=== PATIENT | male | born 1950 | race African-American/Black ===

== ENCOUNTER 2018-05-21 12:02 | Inpatient (IN) | payer MEDICAID ==
[~2018-05-21] VITALS: Ht 172.7 cm; Wt 88.5 kg
--- NOTE | 2018-05-21 12:17 | NUR ---
SHERON FRIAS 89 FROM [facility], "BEEN SICK LAST COUPLE OF DAYS, ALTERED, FEVER AND HYPOTENSIVE, WORSE TODAY" BS 198. TO ER BED 8, HOOKED TO MONITOR, CHANGED TO GOWN, AWAITING MD LBACK.
[2018-05-21] MEDS ORDERED: FURO-144 PO (12:32)
[2018-05-21] MEDS ORDERED: ACET-868 PO (12:32)
[2018-05-21] MEDS ORDERED: FAMO20TA8 PO (12:32)
[2018-05-21] MEDS ORDERED: PRED20TA PO (12:32)
[2018-05-21] MEDS ORDERED: INSU100I26 SQ (12:32)
[2018-05-21] MEDS ORDERED: ENOX40DI SQ (12:32)
[2018-05-21] MEDS ORDERED: GLUC1KIT IM (12:32)
[2018-05-21] MEDS ORDERED: HYDR-4384 PO (12:32)
[2018-05-21] MEDS ORDERED: LOSA50TA39 PO (12:32)
[2018-05-21] MEDS ORDERED: BENZ1TAB7 PO (12:32)
[2018-05-21] MEDS ORDERED: CARV12.52 PO (12:32)
[2018-05-21] MEDS ORDERED: BLOO-668 IN (12:32)
[2018-05-21] MEDS ORDERED: DIPH25CA6 PO (12:32)
[2018-05-21] MEDS ORDERED: HALO5TAB PO (12:32)
[2018-05-21] MEDS ORDERED: ONDA4TAB5 PO (12:32)
[2018-05-21] MEDS ORDERED: INSU100V27 SQ (12:32)
--- NOTE | 2018-05-21 12:35 | NUR ---
DR ROGERS AT BEDSIDE
[2018-05-21 12:48] LABS: BASOPHILS % (AUTO) 0.1 % (0.0-2.0); EOSINOPHILS % (AUTO) 0.3 % (0.0-6.0); HEMATOCRIT 42 % (39-51); HEMOGLOBIN 14.1 g/dL (13.5-17.5); LYMPHOCYTES # (AUTO) 0.7 /CMM (0.8-4.8); LYMPHOCYTES % (AUTO) 3.5 % (20.0-44.0); MEAN CORPUSCULAR HGB CONC 34 g/dl (31.0-36.0); MEAN CORPUSCULAR VOLUME 99 fL (80-96); MONOCYTES % (AUTO) 10.3 % (2.0-12.0); NEUTROPHILS # (AUTO) 16.5 /CMM (1.8-8.9); NEUTROPHILS % (AUTO) 85.8 % (43.0-81.0); PLATELET COUNT (AUTO) 86 /CMM (150-450); RED BLOOD CELL COUNT(AUTO) 4.23 MIL/uL (4.5-6.0); WHITE BLOOD COUNT (AUTO) 19.3 K/uL (4.3-11.0)
[2018-05-21 12:50] LABS: APPEARANCE,URINE Cloudy (CLEAR); BILIRUBIN,URINE Negative (NEGATIVE); BLOOD, URINE Moderate Ery/uL (NEGATIVE); COLOR,URINE Yellow (YELLOW); KETONES,URINE Negative (NEGATIVE); LEUKOCYTE ESTERASE ,URINE Moderate (NEGATIVE); NITRITE, URINE Negative (NEGATIVE); PH,URINE 5.5 (5.0-8.0); PROTEIN,URINE 30 mg/dl (NEGATIVE); UGLUCOSE Negative (NEGATIVE); UROBILINOGEN,URINE 0.2 EU/dL (0.2)
[2018-05-21 12:56] LABS: BACTERIA,URINE Rare /HPF (None Seen); SQUAMOUS EPITHELIAL CELL,UR Rare /HPF (None Seen)
[2018-05-21 12:58] LABS: CALCIUM, SERUM 8.4 mg/dL (8.5-10.1); CARBON DIOXIDE 24 mmol/L (21-32); CHLORIDE 94 mmol/L (98-107); GLUCOSE 220 mg/dL (74-106); POTASSIUM 4.6 mmol/L (3.5-5.1); SODIUM SERUM 127 mmol/L (136-145); UREA NITROGEN, BLOOD 56 mg/dL (7-18)
[2018-05-21 13:04] LABS: ALANINE AMINOTRANSFERASE 25 U/L (12-78); ALBUMIN 2.2 g/dL (3.4-5.0); ALKALINE PHOSPHATASE 107 U/L (46-116); ASPARTATE AMINOTRANSFERASE 45 U/L (15-37); BILIRUBIN,DIRECT 1.7 mg/dL (0.0-0.2); BILIRUBIN,TOTAL 2.2 mg/dL (0.2-1.0); TOTAL PROTEIN, SERUM 6.3 g/dL (6.4-8.2)
[2018-05-21 13:16] LABS: LYMPHOCYTES % (MANUAL) 3 % (16-48); MONOCYTES % (MANUAL) 11 % (0-11.0); NEUTROPHILS % (MANUAL) 86 (42-76)
[2018-05-21] MEDS ORDERED: PIPERACILLIN /TAZOBACTAM 3.375 G in IV D5W 50 ML IV ONE (13:30)
[2018-05-21] MEDS ORDERED: VANCOMYCIN 1 GM in IV D5W 250 ML IV ONE (13:30)
[2018-05-21] MEDS ORDERED: ASPIRIN 300 MG/SUPP.RECT RC ONE ×2 (13:49→14:00)
[2018-05-21] MEDS ORDERED: IV NS 0.9% 1,000 ML BAG IV ONE ×3 (14:00→18:30)
--- NOTE | 2018-05-21 14:30 | NUR ---
PT IN BED, HOOKED TO MONITOR, NAD. WILL CONTINUE TO MONITOR
--- NOTE | 2018-05-21 16:15 | NUR ---
CALLED KAZ LÓPEZ FOR BED; STATED THAT HE IS WAITING FOR DISCHARGES FROM UP STAIRS TO HAPPEN, THEN HE WILL GIVE BEDS.
[2018-05-21] MEDS ORDERED: IV NS 0.9% 500 ML IV PRN (16:30)
[2018-05-21] MEDS ORDERED: DEXTROSE 50%-WATER 50 ML DISP.SYRIN IV PRN (16:30)
--- NOTE | 2018-05-21 16:53 | NUR ---
INFORMED DR BROWN THAT PT IS TACHYCARDIC WITH DROPPING BLOOD PRESSURE. RECEIVED VERBAL ORDER OF 1L NS TO RUN FOR AN HOUR. CARRIED OUT ORDER.
--- NOTE | 2018-05-21 17:13 | NUR ---
BED 108
--- NOTE | 2018-05-21 17:25 | NUR ---
REPORT GIVEN TO YIN ABAD OF TELE UNIT
[2018-05-21] MEDS ORDERED: HEPARIN SODIUM, PORCINE 5000 UNITS/1 ML VIAL SQ ONE (17:49)
--- NOTE | 2018-05-21 17:55 | NUR ---
NS 1L IVPB LAC 20G, TOLERATED WELL
[2018-05-21] MEDS: FAMOTIDINE (20 MG) 20 MG TABLET PO SCH (19:42)
[2018-05-21] MEDS: BLOOD SUGAR DIAGNOSTIC 1 EACH STRIP IN SCH ×2 (19:43→23:54)
[2018-05-21 20:00] VITALS: BP 110/79
[2018-05-21] MEDS ORDERED: CEFTRIAXONE 1 G in IV D5W 50 ML IV SCH (20:00)
--- NOTE | 2018-05-21 20:00 | NUR ---
RN AGUILAR ADMITTING NOTE RECEIVED PT FROM YIN ABAD AM SHIFT, AOX2, CONFUSED, ON R/A, WELL TOLERATED SAT' 97 %, DENIES ANY PAIN, GENERALIZED OLD RASH TO LOW EXTREMITY, DUSKY COLOR, WITH LAC#20G AND RH#20G, WELL SECURED AND PATENT, KEPT CLEAN AND DRY, AMBULATORY WITH ASSIST, VS STABLE SINUS TACHY 112, SAFETY MEASURES IN PLACE, ADMITTING ORDERS ENTERED, ADMITTED FOR SEPSIS, PNA, WILL CONT' TO MONITOR.
--- NOTE | 2018-05-21 20:07 | NUR ---
EGG SMELLER NOTE RECEIVED PATIENT FROM ATTIC BLOWER. PATIENT SLEEPING. A/O X 2, NO SOB, AFEBRILE, NO S/S OF DISTRESS. 2L 02 VIA NC, BP 90/64, RR 18, TEMP 97.8. NPO EXCEPT MEDS. LAC #20 INTACT AND PATENT. RH #20 INTACT AND PATENT. CARE ENDORSED TO LIFE SKILLS SPECIALIST RN.
[2018-05-21] MEDS: INSULIN REGULAR, HUMAN 100 UNIT/ML 3 ML VIAL SQ PRN ×2 (20:27→23:55)
[2018-05-21] MEDS ORDERED: AZITHROMYCIN 500 MG in IV D5W 250 ML IV SCH (21:00)
--- NOTE | 2018-05-21 23:22 | NUR ---
Patient is alert, resides at [facility] [phone] at [address] [address]. He is ambulatory and semi-independent with adl's. He is a [employer] member. Will coordinate with insurance processor for any dc planning needs. Current dc plan is to return to the [facility]. Addendum: 05/21/18 at 2877 by CANDY BANUELOS RN Amended: Links added.
[2018-05-22] VITALS: BP 110/93
[2018-05-22] MEDS ORDERED: IV NS 0.9% 1,000 ML BAG IV PRN ×2 (04:30→05:00)
[2018-05-22 04:54] VITALS: BP 107/70
[2018-05-22] MEDS: BLOOD SUGAR DIAGNOSTIC 1 EACH STRIP IN SCH ×3 (05:25→18:22)
[2018-05-22] MEDS: INSULIN REGULAR, HUMAN 100 UNIT/ML 3 ML VIAL SQ PRN ×3 (05:32→18:23)
--- NOTE | 2018-05-22 06:46 | NUR ---
AGUILAR RN NOTE ENDORSED PATIENT TO AM RN. PATIENT SLEEPING. A/O X 2, NO SOB, AFEBRILE, NO S/S OF DISTRESS. 2L 02 VIA NC, PREFER R/A. NPO EXCEPT MEDS. LAC #20 INTACT AND PATENT. RH #20 INTACT AND PATENT. CARE ENDORSED TO CPR INSTRUCTOR RN.
--- NOTE | 2018-05-22 07:30 | NUR ---
RN NOTES RECEIVED PATIENT IN BED, ASLEEP BUT EASILY AWAKES ON VERBAL STIMULI, ABLE TO RESPOND APPROPRIATELY BUT IS WITHDRAWN, AOX2, NOT ON ANY FORM OF DISTRESS, NO SOB, ON R/A, SATING AT 98 %, COMPLAINS OF PAIN WITH A 6/10 SCALE BUT WONT RESPOND ON WHAT PART OF THE BODY IS HURTING AND SAID NOT AT THIS TIME WHEN OFFERED WITH PAIN MEDICINE, SINUS TACHY ON THE MONITOR WITH HR AT 101 AT THIS TIME. WITH LAC#20G AND RH#20G IV ACCESS IN PLACE AND INTACT, PATENT ON FLUSHING, IVF OF NS AT 100CC/HR. GENERALIZED OLD RASH TO SCAB ON THE LOWER EXTREMITIES. PATIENT KEPT COMFORTABLE IN BED. SAFETY MEASURES OBSERVED AND MAINTAINED IN PLACE, SRX2 RAISED, BED LOCKED AND LOW POSITION, BED ALARM ON, ENCOURAGE PATIENT TO CALL FOR HELP AND ASSISTANCE, GALILEA LIGHT PLACED WITHIN REACH. WILL CONTINUE TO MONITOR PATIENT CLOSELY.
[2018-05-22 08:00] VITALS: BP 112/65
[2018-05-22] MEDS: INSULIN GLARGINE, 100 UNIT/ML CARTRIDGE SQ SCH ×2 (09:00→22:28)
[2018-05-22] MEDS ORDERED: PIPERACILLIN /TAZOBACTAM 2.25 G in IV D5W 50 ML IV SCH (09:00)
[2018-05-22] MEDS: FAMOTIDINE (20 MG) 20 MG TABLET PO SCH ×2 (09:10→18:22)
[2018-05-22] MEDS: PIPERACILLIN /TAZOBACTAM 3.375 G in IV D5W 100 ML IV SCH (10:46)
[2018-05-22 12:50] LABS: CALCIUM, SERUM 8.6 mg/dL (8.5-10.1); CREATININE 1.3 mg/dL (0.6-1.3); POTASSIUM 3.8 mmol/L (3.5-5.1)
[2018-05-22 12:53] LABS: EOSINOPHILS % (AUTO) 0.6 % (0.0-6.0); HEMATOCRIT 45 % (39-51); HEMOGLOBIN 15.2 g/dL (13.5-17.5); LYMPHOCYTES # (AUTO) 0.8 /CMM (0.8-4.8); LYMPHOCYTES % (AUTO) 4.3 % (20.0-44.0); MEAN CORPUSCULAR HGB CONC 34 g/dl (31.0-36.0); MEAN CORPUSCULAR VOLUME 98 fL (80-96); MONOCYTES % (AUTO) 11.2 % (2.0-12.0); NEUTROPHILS # (AUTO) 15.1 /CMM (1.8-8.9); NEUTROPHILS % (AUTO) 83.9 % (43.0-81.0); PLATELET COUNT (AUTO) 100 /CMM (150-450); RED BLOOD CELL COUNT(AUTO) 4.58 MIL/uL (4.5-6.0)
[2018-05-22 13:04] LABS: ALBUMIN 2.2 g/dL (3.4-5.0); BILIRUBIN,TOTAL 1.9 mg/dL (0.2-1.0); MAGNESIUM 1.9 mg/dL (1.8-2.4); TOTAL PROTEIN, SERUM 6.9 g/dL (6.4-8.2)
[2018-05-22 13:07] LABS: BAND % (MANUAL) 7 % (0.0-5.0); LYMPHOCYTES % (MANUAL) 6 % (16-48); MONOCYTES % (MANUAL) 9 % (0-11.0); NEUTROPHILS % (MANUAL) 78 (42-76)
--- NOTE | 2018-05-22 14:00 | NUR ---
RN NOTES LACTIC ACID AT 2.1, DR. PIMENTEL MADE AWARE. NO NEW ORDERS AT THIS TIME
[2018-05-22 16:00] VITALS: BP 92/68
--- NOTE | 2018-05-22 18:00 | NUR ---
rn notes informed md that patient's current iv line got infiltrated. was attempted to be inserted line three times but was unsuccessful. obtained order for midline insertion. order noted and carried out. nursing supervisor finishing department informed.
--- NOTE | 2018-05-22 19:26 | NUR ---
RN NOTES ENDORSED PATIENT FOR CONTINUITY OF CARE. NO ACUTE CHANGES WITHIN THE SHIFT. NO SOB NOTED. NO RESPIRATORY DISTRESS NOTED. DENIES AY PAIN. IV LINES IN PLACE. IVF INFUSING. PT CLEAN AND DRY. PT COMFORTABLE. CALL LIGHT WITHIN REACH. SAFETY MEASURES IN PLACE. HOB ELEVATED.
--- NOTE | 2018-05-22 19:30 | NUR ---
MS1/RN RECEIVE PATIENT SLEEPING, EASILY AROUSABLE, APPEAR COMFORTABLE, NO SIGNS OF DISTRESS NOTED, CALL LIGHT IN REACH. FALL PRECAUTION. WILL MONITOR.
[2018-05-22 20:00] VITALS: BP 113/71
[2018-05-23] MEDS: BLOOD SUGAR DIAGNOSTIC 1 EACH STRIP IN SCH ×5 (00:29→23:31)
[2018-05-23] MEDS: IV 1/2NS 1000 ML 1,000 ML IV PRN ×2 (00:29→17:50)
[2018-05-23] MEDS: PIPERACILLIN /TAZOBACTAM 3.375 G in IV D5W 100 ML IV SCH ×3 (00:38→17:49)
--- NOTE | 2018-05-23 00:44 | NUR ---
MS1/RN MIDLINE RT. UPPER ARM WAS INSERTED.
--- NOTE | 2018-05-23 01:46 | NUR ---
MS1/RN ACCU CHECK BLOOD SUGAR AT 0013 WAS 191, DID NOT GIVE INSULIN BECAUSE PATIENT REFUSED SNACK AFTER LANTUS 13 UNITS AT 2228. WILL CONTINUE TO MONITOR.
[2018-05-23 03:50] VITALS: BP 120/68
[2018-05-23] MEDS: INSULIN REGULAR, HUMAN 100 UNIT/ML 3 ML VIAL SQ PRN ×4 (06:11→23:33)
--- NOTE | 2018-05-23 06:20 | NUR ---
MS/RN PATIENT STILL SLEEPING, EASILY AROUSABLE, COMFORTABLE, NO SIGNS OF DISTRESS NOTED, CALL LIGHT IN REACH, ALL NEEDS ATTENDED AT THIS TIME, WILL CONTINUE TO MONITOR.
--- NOTE | 2018-05-23 07:30 | NUR ---
RN OPENING NOTES RECEIVED REPORT FROM TRAVEL PHYSICAL THERAPIST RN. PT IS SLEEPING IN BED AT PRESENT TIME WITH IV RUNNING 1/2 NS @ 100 MLS/HR. NO SIGNS OF SOB OR PAIN NOTED AT PRESENT TIME WILL CONTINUE TO MONITOR.
[2018-05-23 07:35] LABS: BASOPHILS % (AUTO) 0.2 % (0.0-2.0); EOSINOPHILS % (AUTO) 0.7 % (0.0-6.0); HEMATOCRIT 42 % (39-51); HEMOGLOBIN 14.5 g/dL (13.5-17.5); LYMPHOCYTES % (AUTO) 8.9 % (20.0-44.0); MEAN CORPUSCULAR HGB CONC 34 g/dl (31.0-36.0); MEAN CORPUSCULAR VOLUME 98 fL (80-96); MONOCYTES # (AUTO) 1.7 /CMM (0.1-1.30); MONOCYTES % (AUTO) 15.1 % (2.0-12.0); NEUTROPHILS # (AUTO) 8.2 /CMM (1.8-8.9); NEUTROPHILS % (AUTO) 75.1 % (43.0-81.0); PLATELET COUNT (AUTO) 93 /CMM (150-450); RED BLOOD CELL COUNT(AUTO) 4.35 MIL/uL (4.5-6.0)
[2018-05-23 08:00] VITALS: BP 115/81
[2018-05-23 08:59] VITALS: BP 115/81
[2018-05-23] MEDS: FAMOTIDINE (20 MG) 20 MG TABLET PO SCH ×2 (09:27→17:49)
[2018-05-23 09:57] LABS: BAND % (MANUAL) 3 % (0.0-5.0); EOSINOPHILS % (MANUAL) 3 % (0-4); LYMPHOCYTES % (MANUAL) 9 % (16-48); MONOCYTES % (MANUAL) 15 % (0-11.0); NEUTROPHILS % (MANUAL) 70 (42-76)
[2018-05-23 16:00] VITALS: BP 111/77
[2018-05-23] MEDS: MUPIROCIN OINT 2% 22 GM TUBE SCH ×2 (16:41→21:19)
--- NOTE | 2018-05-23 18:44 | NUR ---
RN CLOSING NOTES BEDSIDE REPORT GIVEN TO BRACELET FORM COVERER RN. PT IS RESTING IN BED IN SEMI FOWLERS POSITION WITH WILLIAM MIDLINE RUNNING 1/2 NS @100 MLS/HR. PT DENIES ANY PAIN OR SOB AT PRESENT TIME. PT ON 2 L O2 NC. BED IS LOCKED AND IN LOWEST POSITION. CALL LIGHT IS WITHIN REACH AND PT ENCOURAGED TO USE CALL LIGHT, BED ALARM IS ON DUE TO PT A&O X 2. WILL ENDORSE CONTINUITY OF CARE TO BRACELET FORM COVERER RN.
--- NOTE | 2018-05-23 19:58 | NUR ---
RN INITIAL MS NOTES RECEIVED PT AWAKE IN BED ON R/A TOLERATING WELL, AOX2, IN BED AT PRESENT TIME WITH IV RUNNING 1/2 NS @ 100 MLS/HR. NO SIGNS OF SOB OR PAIN NOTED AT PRESENT TIME WILL CONTINUE TO MONITOR.
[2018-05-23] MEDS: INSULIN GLARGINE, 100 UNIT/ML CARTRIDGE SQ SCH (21:15)
[2018-05-24] VITALS: BP 100/64
[2018-05-24] MEDS: PIPERACILLIN /TAZOBACTAM 3.375 G in IV D5W 100 ML IV SCH ×2 (02:15→09:10)
[2018-05-24] MEDS: BLOOD SUGAR DIAGNOSTIC 1 EACH STRIP IN SCH ×3 (05:26→11:58)
--- NOTE | 2018-05-24 07:05 | NUR ---
MS RN OPENING NOTES RECEIVED PT LYING ON BED.ALERT/ORIENTED X1 WITH CONFUSION.ON RA ,TOLERATING WELL.NO SOB AND ACUTE DISTRESS NOTED.MIDLINE IS ON RIGHT UA.SITE IS CLEAN,DRY AND INTACT.NO INFILTRATION NOTED.SAFETY IS MAINTAINED AT ALL TIMES.BED IS IN LOW POSITION AND LOCKED.CALL LIGHT IS WITHIN REACH.WILL CONTINUE TO MONITOR THE PT CLOSELY.
[2018-05-24 07:26] LABS: CALCIUM, SERUM 8.6 mg/dL (8.5-10.1); POTASSIUM 3.5 mmol/L (3.5-5.1)
[2018-05-24 08:00] VITALS: BP 118/78
[2018-05-24] MEDS: FAMOTIDINE (20 MG) 20 MG TABLET PO SCH (08:33)
[2018-05-24] MEDS: MUPIROCIN OINT 2% 22 GM TUBE SCH (08:34)
[2018-05-24] MEDS: ACETAMINOPHEN 650 MG/SUPP.RECT RC PRN ×2 (08:35→09:26)
--- NOTE | 2018-05-24 08:40 | NUR ---
MS RN NOTES PT HAS TEMP 100.5 F.OFFERED TYLENOL SUPPOSITORY X3,EXPLAINED RISK AND BENEFITS X3,STILL REFUSED.PT NOTED WITH SLEEPY.WILL OFFER AGAIN AND MONITOR THE TEMP.
[2018-05-24] MEDS ORDERED: CEFT2VIA14 IV (10:05)
[2018-05-24 10:40] LABS: THYROID STIMULATING HORMONE 2.146 uIU/mL (0.358-3.74)
[2018-05-24] MEDS: INSULIN REGULAR, HUMAN 100 UNIT/ML 3 ML VIAL SQ PRN (12:01)
--- NOTE | 2018-05-24 12:27 | NUR ---
MS RN NOTES REPORT GIVEN TO POLLO DAMIAN IN [employer] [facility].PT IS GOING TO 5B.
[2018-05-24 16:00] VITALS: BP 93/73
--- NOTE | 2018-05-24 16:30 | NUR ---
MS CEMETERY KEEPER NOTES PT DISCHARGED TO [facility] BY [facility].REPORT GIVEN TO AMBULANCE PERSONNEL,ADELA.VITAL SIGNS CHECKED AND RECORDED.SKIN ASSESSMENT IS DONE.BELONGINGS TAKEN BY EMS STAFF.ON 2 L O2 VIA NC CONTINUOUSLY.NO SOB AND ACUTE DISTRESS NOTED.PT LEFT VIA GURNEY.
== END 2018-05-24 16:35 | DRG 720 ==
LOC: ER 12:14 → TELE-TD 17:30 → MEDSG1 05-22 09:19
PROVIDERS: ADMIT Internal Medicine; ATTEND Internal Medicine
PROC: 05H533Z Insertion of Infusion Device into Right Subclavian Vein, Percutaneous Approach (ICD-10-PCS; principal; 2018-05-23)
DX: A41.9 Sepsis, unspecified organism (principal); G93.41 Metabolic encephalopathy; N17.9 Acute kidney failure, unspecified; D69.59 Other secondary thrombocytopenia; I12.0 Hypertensive chronic kidney disease with stage 5 chronic kidney disease or end stage renal disease; I48.2 Chronic atrial fibrillation; E87.1 Hypo-osmolality and hyponatremia; F03.90 Unspecified dementia, unspecified severity, without behavioral disturbance, psychotic disturbance, mood disturbance, and anxiety; N39.0 Urinary tract infection, site not specified; N18.9 Chronic kidney disease, unspecified; E11.9 Type 2 diabetes mellitus without complications; Z79.4 Long term (current) use of insulin; Z22.322 Carrier or suspected carrier of Methicillin resistant Staphylococcus aureus; A41.51 Sepsis due to Escherichia coli [E. coli]; Z16.23 Resistance to quinolones and fluoroquinolones
CPT/HCPCS: 36415; 36569; 71045-TC; 80048-TC; 80053-TC; 80076-TC; 81000-TC; 82962-TC; 83605-TC; 83735-TC; 84439-TC; 84443-TC; 84484-TC; 85025-TC; 85730-TC; 87040-TC; 87081-TC; 87086-TC; 87186-TC; G0378; J0456; J0696; J1644; J1815; J2543; J3490; J7030; J7040; J7060